=== PATIENT | female | born 1995 | race Caucasian/White ===

== ENCOUNTER 2018-08-16 05:24 | Emergency (ER) | payer OTHER ==
[2018-08-16 06:15] VITALS: BP 123/69
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
== END 2018-08-16 06:09 | disposition home or self-care (01) ==
LOC: ED 05:24
DX: S09.90XA Unspecified injury of head, initial encounter (principal); Y04.2XXA Assault by strike against or bumped into by another person, initial encounter; Y92.9 Unspecified place or not applicable; Z88.0 Allergy status to penicillin
CPT/HCPCS: 99282

== ENCOUNTER 2019-03-22 17:23 | Emergency (ER) | payer OTHER ==
--- NOTE | 2019-03-22 17:31 | UC ---
Lower Extremity/Ankle HPI - History of Current Complaint Chief Complaint: UCLowerExtremity Stated Complaint: LEFT ANKLE INJURY Time Seen by Provider: 03/22/19 17:27 - Allergies/Home Medications Allergies/Adverse Reactions: Allergies Allergy/AdvReac Type Severity Reaction Status Date / Time amoxicillin Allergy Rash Verified 03/22/19 17:41 Home Medications: Home Medications Ethinyl Estradiol/Drospirenone [Teri 28 Tablet] 1 tab PO DAILY 03/22/19 [ History Confirmed 03/22/19] PMH/Surg Hx/FS Hx/Imm Hx - Family History Known Family History: Positive: Non-Contributory - Social History Alcohol Use: None Substance Use Type: None Smoking Status (MU): Never Smoked Tobacco Diagnostics - Radiology XR foot and ankle Radiology Interpretation Completed By: ED Physician Summary of Radiographic Findings: No fx Lower Extremity Course/Dx - Differential Dx/Diagnosis Provider Diagnosis: Ankle sprain Discharge ED - Sign-Out/Discharge Documenting (check all that apply): Patient Departure All imaging exams completed and their final reports reviewed: Yes - Discharge Plan Condition: Stable Disposition: HOME Patient Education Materials: Ankle Sprain (ED) Referrals: Vaibhav Fermin MD [Medical Doctor] - If Needed Christina Fishman NP [Primary Care Provider] - Additional Instructions: If you develop a fever, shortness of breath, chest pain, new or worsening symptoms - please call your PCP or go to the ED immediately. 1) Rest, Ice, and elevate your ankle intermittently throughout the day to decrease pain and swelling 2) Use the walking boot as needed for comfort 3) If your symptoms do not improve within 5-7 days, please be rechecked by Orthopedics - Billing Disposition and Condition Condition: STABLE Disposition: Home
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
[2019-03-22 17:41] VITALS: BP 118/77
--- NOTE | 2019-03-23 07:32 | UC ---
- Progress Note Progress Note: Final radiologist reading of left ankle and left foot x-rays come back for soft tissue swelling for the left ankle and no fracture for the left ankle and foot. Provider interpretation of the same date is no fracture therefore there is no discrepancy. Course/Dx - Diagnoses Provider Diagnoses: Ankle sprain Discharge ED - Sign-Out/Discharge Documenting (check all that apply): Patient Departure All imaging exams completed and their final reports reviewed: Yes - Discharge Plan Condition: Stable Disposition: HOME Patient Education Materials: Ankle Sprain (ED) Referrals: Vaibhav Fermin MD [Medical Doctor] - If Needed Christina Fishman NP [Primary Care Provider] - Additional Instructions: If you develop a fever, shortness of breath, chest pain, new or worsening symptoms - please call your PCP or go to the ED immediately. 1) Rest, Ice, and elevate your ankle intermittently throughout the day to decrease pain and swelling 2) Use the walking boot as needed for comfort 3) If your symptoms do not improve within 5-7 days, please be rechecked by Orthopedics - Billing Disposition and Condition Condition: STABLE Disposition: Home
== END 2019-03-22 18:15 | disposition home or self-care (01) ==
LOC: UCEAST 17:23
DX: S93.402A Sprain of unspecified ligament of left ankle, initial encounter (principal); Z88.0 Allergy status to penicillin; X50.9XXA Other and unspecified overexertion or strenuous movements or postures, initial encounter; Y93.68 Activity, volleyball (beach) (court); Y92.009 Unspecified place in unspecified non-institutional (private) residence as the place of occurrence of the external cause
CPT/HCPCS: 99212; G0463

== ENCOUNTER 2019-07-23 16:17 | Emergency (ER) | payer OTHER ==
[2019-07-23 16:50] VITALS: BP 120/77
[2019-07-23] MEDS ORDERED: Ibuprofen TAB* 400 MG PO ONE (17:06)
--- NOTE | 2019-07-23 17:38 | UC ---
FLU HPI - HPI Summary HPI Summary: 24 yo female presents with flu-like symptoms. She is a student at [employer] and tells me that last week her boyfriend had flu like symptoms with a fever around 102F. Yesterday pt developed fatigue, body aches, dry cough, and low grade fever around 100F. She has been taking ibuprofen with good relief. She is concerned for the flu as she is going to [place] next week for a wedding. She did get a flu shot this year. Denies SOB, chest pain, rash, abdominal pain, vomiting, dysuria. - History of Current Complaint Chief Complaint: UCRespiratory Stated Complaint: FLU LIKE SYMPTOMS Time Seen by Provider: 07/23/19 17:38 Hx Obtained From: Patient Hx Last Menstrual Period: Onset/Duration: Sudden Onset Severity Currently: Mild Severity Initially: Mild Pain Intensity: 4 Pain Scale Used: 0-10 Numeric - Allergy/Home Medications Allergies/Adverse Reactions: Allergies Allergy/AdvReac Type Severity Reaction Status Date / Time amoxicillin Allergy Rash Verified 07/23/19 16:50 Home Medications: Home Medications Acetaminophen TAB* [Tylenol TAB*] 975 mg PO Q6H PRN 07/23/19 [History Confirmed 07/23/19] D-Methorphan/PE/Acetaminophen [Vicks Dayquil Liquicaps] 1 each PO Q6H 07/23/19 [ History Confirmed 07/23/19] Ethinyl Estradiol/Drospirenone [Jasmiel 3 mg-0.02 mg Tablet] 1 each PO DAILY [History Confirmed 07/23/19] PMH/Surg Hx/FS Hx/Imm Hx - Additional Past Medical History Additional PMH: None - Surgical History Surgical History: Yes Surgery Procedure, Year, and Place: [place] - Family History Known Family History: Positive: Non-Contributory - Social History Occupation: Student Lives: With Family Alcohol Use: Occasionally Substance Use Type: Marijuana Substance Use Comment - Amount & Last Used: occasional Smoking Status (MU): Never Smoked Tobacco Review of Systems All Other Systems Reviewed And Are Negative: No Constitutional: Positive: Fever, Fatigue, Other - Body aches Skin: Positive: Negative Eyes: Positive: Negative ENT: Positive: Negative Respiratory: Positive: Cough Cardiovascular: Positive: Negative Gastrointestinal: Positive: Negative Neurovascular: Positive: Negative Neurological/Mental Status: Positive: Negative Psychological: Positive: Negative Physical Exam - Summary Physical Exam Summary: GENERAL: NAD. WDWN. No pain distress. SKIN: No rashes, sores, lesions, or open wounds. HEENT: Head: AT/NC Eyes: EOM intact. Conjunctiva clear without inflammation or discharge. Ears: Hearing grossly normal. TMs intact, no bulging, erythema, or edema. Nose: Nasal mucosa pink and moist. NTTP maxillary and frontal sinus. Throat: Posterior oropharynx without exudates, erythema, or tonsillar enlargement. Uvula midline. NECK: Supple. Nontender. No lymphadenopathy. CHEST: CTAB. No r/r/w. No accessory muscle use. Breathing comfortably and in no distress. CV: RRR. Pulses intact. Cap refill <2seconds NEURO: Alert. PSYCH: Age appropriate behavior. Triage Information Reviewed: Yes Vital Signs: Initial Vital Signs Temp 100.0 F 07/23/19 16:45 Pulse 100 07/23/19 16:45 Resp 16 07/23/19 16:45 BP 120/77 07/23/19 16:45 Pulse Ox 99 07/23/19 16:45 Laboratory Tests 07/23/19 17:57 Influenza A (Rapid) Negative Influenza B (Rapid) Negative Vital Signs Reviewed: Yes Flu Course/Dx - Course Course Of Treatment: POC flu negative, but given exposure and symptomatic will treat as flu at this time. - Differential Dx/Diagnosis Provider Diagnosis: Viral syndrome Discharge ED - Sign-Out/Discharge Documenting (check all that apply): Patient Departure All imaging exams completed and their final reports reviewed: No Studies - Discharge Plan Condition: Stable Disposition: HOME Prescriptions: Oseltamivir CAP* [Tamiflu CAP*] 75 mg PO BID #10 cap Oseltamivir CAP* [Tamiflu CAP*] 75 mg PO BID #10 cap Patient Education Materials: Influenza (ED) Referrals: Christina Fishman NP [Primary Care Provider] - Additional Instructions: FLU TEST NEGATIVE TODAY, BUT YOU HAD AN EXPOSURE AND ARE SYMPTOMATIC Most people with the flu recover within one to two weeks without treatment. However, serious complications of the flu can occur. Go to the ER immediately if you: -- You feel short of breath or have trouble breathing -- You have pain or pressure in your chest or stomach -- You have signs of being dehydrated, such as dizziness when standing or not passing urine -- You feel confused -- You cannot stop vomiting or you cannot drink enough fluids There are several groups of people who are at increased risk for flu complications. These include women, young children (<5 years of age and especially <2 years of age), people older than 65 years of age, and people with certain diseases such as chronic lung disease (such as asthma), heart disease, diabetes, immunosuppressing conditions (such as HIV infection or transplantation), and some other diseases. Treat symptoms Treating the symptoms of influenza can help you to feel better but will not make the flu go away faster. -- Rest until the flu is fully resolved, especially if the illness has been severe. -- Fluids Drink enough fluids so that you do not become dehydrated. One way to materials and processes manager if you are drinking enough is to look at the color of your urine. Normally, urine should be light yellow to nearly colorless. If you are drinking enough, you should pass urine every three to five hours. -- Acetaminophen (sample brand name: Tylenol) can relieve fever, headache, and muscle aches. Aspirin and medicines that include aspirin (eg, bismuth subsalicylate [sample brand name: Pepto-Bismol]) are not recommended for children under 18 because aspirin can lead to a serious disease called Byron syndrome. -- Cough medicines are not usually helpful; cough usually resolves without treatment. We do not recommend cough or cold medicine for children under age 6 years. Antiviral treatment Antiviral medicines can be used to treat or prevent influenza. When used as a treatment, the medicine does not eliminate flu symptoms, although it can reduce the severity and duration of symptoms by about one day. Not every person with influenza needs an antiviral medicine, but some people do; the decision is based upon several factors. If you are severely ill and/or have risk factors for developing complications of influenza, you will need an antiviral agent. People who are only mildly ill and have no risk factors for complications usually do not need to be treated with antiviral medication. - Billing Disposition and Condition Condition: STABLE Disposition: Home - Attestation Statements Provider Attestation: This patient was not seen by me. I was available for consult. Chart reviewed. ROXANNA
[2019-07-23 18:09] LABS: Influenza A Molecular Negative (Negative); Influenza B Molecular Negative (Negative)
== END 2019-07-23 18:17 | disposition home or self-care (01) ==
LOC: UCEAST 16:17
DX: B34.9 Viral infection, unspecified (principal); R50.9 Fever, unspecified; R53.83 Other fatigue; R05 Cough; Z88.0 Allergy status to penicillin
CPT/HCPCS: 99212; G0463